=== PATIENT | male | born 1980 | race African-American/Black ===

== ENCOUNTER 2017-06-08 16:25 | Emergency (ER) | payer OTHER ==
[2017-06-08 16:53] VITALS: BMI 33.5
--- NOTE | 2017-06-08 17:17 | PDOC ---
History of Present Illness - General History Source: Patient Exam Limitations: No Limitations - History of Present Illness Initial Comments: 06/08/17 18:24 The patient is a 36 year old male, with a significant past medical history of IDDM who presents to the emergency department with elevated blood glucose levels. Patient states he went to his Urgent care due to cold-like symptoms. BG at the showed 319. EMS was called and patient presents to the ED for further evaluation of DKA. Patient reports he has not been compliant with his insulin due to prescription issues. He denies chest pain, headache or dizziness. He denies fever, chills, abdominal pain, nausea, vomit, diarrhea or constipation. He denies dysuria, frequency, urgency or hematuria. Patient denies sick contacts or recent travel. <Yanni Jerry - Last Filed: 06/08/17 18:24> <Bryce Joseph - Last Filed: 06/08/17 19:37> - General Chief Complaint: Blood Sugar Problem Stated Complaint: HYPERGLYCEMIA Time Seen by Provider: 06/08/17 17:16 Past History <Yanni Jerry - Last Filed: 06/08/17 18:24> - Past Medical History Anemia: No Asthma: No Cancer: No Cardiac Disorders: No CVA: No COPD: No CHF: No Dementia: No Diabetes: Yes (Non compliant) GI Disorders: No Disorders: No HTN: No Hypercholesterolemia: No Liver Disease: No Seizures: No Thyroid Disease: No - Surgical History Abdominal Surgery: No Appendectomy: No Cardiac Surgery: No Cholecystectomy: No Lung Surgery: No Neurologic Surgery: No Orthopedic Surgery: No - Suicide/Smoking/Psychosocial Hx Smoking History: Never smoked Have you smoked in the past 12 months: No Information on smoking cessation initiated: No Hx Alcohol Use: No Drug/Substance Use Hx: No Substance Use Type: None <Bryce Joseph - Last Filed: 06/08/17 19:37> - Past Medical History Allergies/Adverse Reactions: Allergies Allergy/AdvReac Type Severity Reaction Status Date / Time No Known Allergies Allergy Verified 01/07/16 09:45 Home Medications: Ambulatory Orders Insulin Aspart [Novolog] 100 unit SQ ACHS #1 ml 01/10/16 Insulin Detemir [Levemir Flextouch] 28 unit SQ BID #1 ml 01/10/16 Insulin Sliding Scale [Novolog Vial Sliding Scale -] 0 units SQ ACHS #1 pen Isopropyl Alcohol [Alcoh-Wipe] 1 each DAILY #120 towelette 01/10/16 Lancing Device [Lancet Device] 1 each ACHS #90 each 01/10/16 Levofloxacin [Levaquin] 750 mg PO DAILY #7 tablet 01/10/16 Miscellaneous Medical Supply [Glucometer Device] 1 each .ROUTE ASDIR #1 kit Miscellaneous Medical Supply [Glucometer Test Strips #100] 1 each .ROUTE ASDIR # 1 box 01/10/16 Wadding [Cotton Balls] 1 each DAILY #120 each 01/10/16 Review of Systems - Review of Systems Able to Perform ROS?: Yes Comments:: 06/08/17 18:24 A complete review of 10 out of 10 review of systems is taken and is negative apart from what is previously mentioned below and in the HPI. <Yanni Jerry - Last Filed: 06/08/17 18:24> *Physical Exam - Vital Signs Last Vital Signs Temp Pulse Resp BP Pulse Ox 99.1 F 111 H 24 125/85 99 06/08/17 16:49 06/08/17 16:49 06/08/17 16:49 06/08/17 16:49 06/08/17 16:49 - Physical Exam Comments: 06/08/17 18:24 Vitals: Triage Vital signs reviewed General Appearance: no acute distress, well nourished well developed, Head: Atraumatic, normocephalic Neck: Supple;No Nuchal rigidity Chest Wall: Nontender Cardiac: Regular rate and rhythm, no murmurs, no rubs, no gallops, Lungs: Clear to auscultation bilateral, good air movement bilaterally, Abdomen: Soft, nondistended, normal bowel sounds, nontender to palpation Extremities: Full range of motion to all extremities, no cyanosis, clubbing, or edema Skin: Warm and dry, no rashes or lesions, no petechiae <Yanni Jerry - Last Filed: 06/08/17 18:24> - Vital Signs Last Vital Signs Temp Pulse Resp BP Pulse Ox 99.1 F 111 H 24 125/85 99 06/08/17 16:49 06/08/17 16:49 06/08/17 16:49 06/08/17 16:49 06/08/17 16:49 <Bryce Joseph - Last Filed: 06/08/17 19:37> ED Treatment Course - LABORATORY CBC & Chemistry Diagram: 06/08/17 18:15 06/08/17 18:15 - ADDITIONAL ORDERS Additional order review: 06/08/17 18:15 RBC 5.60 MCV 80.5 MCHC 34.1 RDW 13.8 MPV 9.0 Neutrophils % 82.8 Lymphocytes % 10.8 Monocytes % 5.4 Eosinophils % 0.3 Basophils % 0.7 <Yanni Jerry - Last Filed: 06/08/17 18:24> - LABORATORY CBC & Chemistry Diagram: 06/08/17 18:15 06/08/17 18:15 <Bryce Joseph - Last Filed: 06/08/17 19:37> Medical Decision Making - Medical Decision Making 06/08/17 19:09 Noncompliant insulin-dependent diabetic presents with upper respiratory type symptoms as well as increased thirst fingerstick noted to be in the 300s. We'll check labs ABG to rule out DKA hydrate reassess. Patient can follow-up in [facility]. Dr. Yap to follow up patient <Bryce Joseph - Last Filed: 06/08/17 19:37> *DC/Admit/Observation/Transfer - Attestations Scribe Attestion: 06/08/17 18:24 Documentation prepared by Yanni Jerry, acting as medical imaging technician for Bryce Joseph MD <Yanni Jerry - Last Filed: 06/08/17 18:24> <Bryce Joseph - Last Filed: 06/08/17 19:37> Diagnosis at time of Disposition: Uncontrolled diabetes mellitus Qualifiers: Diabetes mellitus type: other specified (including PARISH) Diabetes mellitus complication status: with unspecified complications
[2017-06-08] MEDS ORDERED: SODIUM CHLORIDE 1,000 ML IV STA (17:38)
[2017-06-08] MEDS ORDERED: SODIUM CHLORIDE 0.9% 1000 ML INFUS.BAG IV ONE (17:41)
[2017-06-08 18:20] LABS: BASOPHIL 0.7 % (0-2.0); EOSINOPHIL 0.3 % (0-4.5); MCH 27.5 pg (25.7-33.7); MCHC 34.1 g/dl (32.0-35.9); MEAN CELL VOLUME 80.5 fl (80-96); NEUTROPHILS 82.8 % (42.8-82.8); PLATELET COUNT 190 K/MM3 (134-434); RDW 13.8 % (11.9-15.9); WHITE BLOOD COUNT 12.8 K/mm3 (4.0-10.0)
[2017-06-08 18:52] LABS: ALBUMIN 3.6 g/dl (3.4-5.0); ALK PHOS 128 U/L (45-117); ANION GAP 10 (8-16); BILIRUBIN,TOTAL 1.4 mg/dL (0.2-1.0); CALCIUM 8.7 mg/dL (8.5-10.1); CO2 23 mmol/L (21-32); CREATININE 1.1 mg/dL (0.7-1.3); GLUCOSE,RANDOM 279 mg/dL (74-106); TOT PROT 7.3 g/dl (6.4-8.2)
[2017-06-08 19:31] LABS: SGOT/AST 26 U/L (15-37); SGPT/ALT 41 U/L (12-78)
[2017-06-08] MEDS ORDERED: INSULIN REGULAR HUMAN 100 UNITS/ML *VIAL IVPUSH ONE (19:43)
[2017-06-08 20:03] LABS: ARTERIAL BLD GAS O2 SATURATION 95.9 % (90-98.9); ARTERIAL BLOOD GAS BASE EXCESS 0.6 meq/l (-2-2); ARTERIAL BLOOD GAS HCO3 23.8 meq/L (22-26); ARTERIAL BLOOD GAS PO2 72.3 mmHg (80-100); ARTERIAL BLOOD GAS pH 7.44 (7.35-7.45)
[2017-06-08 20:07] LABS: METHEMOGLOBIN 0.7 % (0.4-1.5)
[2017-06-08 20:08] LABS: ALLENS TEST POSITIVE; ART PUNCT SITE LEFT RADIAL; PT. ON O2? ROOM AIR
[2017-06-08] MEDS ORDERED: INSULIN REGULAR HUMAN 100 UNITS/ML *VIAL ONE (21:24)
--- NOTE | 2017-06-08 23:02 | PDOC ---
*Physical Exam - Vital Signs Last Vital Signs Temp Pulse Resp BP Pulse Ox 98.1 F 108 H 20 111/65 100 06/08/17 19:26 06/08/17 19:26 06/08/17 19:26 06/08/17 19:26 06/08/17 19:26 ED Treatment Course - LABORATORY CBC & Chemistry Diagram: 06/08/17 18:15 06/08/17 18:15 - ADDITIONAL ORDERS Additional order review: Laboratory Results 06/08/17 06/08/17 06/08/17 19:36 18:15 17:39 Anticoagulation Therapy Y Puncture Site Left radial ABG pH 7.44 ABG pCO2 at Pt Temp 35.3 ABG pO2 at Pt Temp 72.3 L ABG HCO3 23.8 ABG O2 Sat (Measured) 95.9 ABG O2 Content 19.6 ABG Base Excess 0.6 Bobby Test Positive Carboxyhemoglobin 1.5 Methemoglobin 0.7 O2 Delivery Device Y Oxygen Flow Rate Room air Vent Mode Y Vent Rate Y Mechanical Rate Y Pressure Support Vent Y Sodium 137 Potassium 3.8 Chloride 104 Carbon Dioxide 23 Anion Gap 10 BUN 12 Creatinine 1.1 Creat Clearance w eGFR > 60 Random Glucose 279 H Calcium 8.7 Total Bilirubin 1.4 H AST 26 ALT 41 Alkaline Phosphatase 128 H Total Protein 7.3 Albumin 3.6 06/08/17 19:12 Influenza Types A,B Antigen (VICKI) - Final Nasopharyngeal Swab - Final 06/08/17 18:15 RBC 5.60 MCV 80.5 MCHC 34.1 RDW 13.8 MPV 9.0 Neutrophils % 82.8 Lymphocytes % 10.8 Monocytes % 5.4 Eosinophils % 0.3 Basophils % 0.7 - Medications Given in the ED: ED Medications Discontinued Medications Generic Name Dose Route Start Last Admin Trade Name Freq PRN Reason Stop Dose Admin Insulin Human Regular 5 units 06/08/17 19:43 06/08/17 21:25 Novolin R Vial *For Ivpush Or Iv Drip Only* IVPUSH 06/08/17 19:44 5 units ONCE ONE Administration Sodium Chloride 2,000 ml 06/08/17 17:41 06/08/17 18:33 Normal Saline - IV 06/08/17 17:42 2,000 ml ONCE ONE Administration Medical Decision Making - Medical Decision Making 06/08/17 23:01 Sugar down slightly, patient anxious to go home. No complaints at present *DC/Admit/Observation/Transfer Diagnosis at time of Disposition: Uncontrolled diabetes mellitus Qualifiers: Diabetes mellitus type: other specified (including PARISH) Diabetes mellitus complication status: with other specified complication - Discharge Dispostion Disposition: HOME Condition at time of disposition: Improved Admit: No - Prescriptions Prescriptions: Insulin (Levemir) [Levemir Flexpen -] 0 units SQ DAILY #1 pen Insulin Lispro [Humalog] 100 unit SQ ASDIR #1 cartridge - Referrals Referrals: Murali Patrick MD [Staff Physician] - - Patient Instructions Printed Discharge Instructions: DI for Hyperglycemia -- Adult - Post Discharge Activity
[2017-06-08 23:03] VITALS: BP 129/80; PULSE 107; TEMP 98.2
--- NOTE | 2017-06-09 13:17 | EKG ---
Test Reason : Blood Pressure : / mmHG Vent. Rate : 115 BPM Atrial Rate : 115 BPM P-R Int : 154 ms QRS Dur : 086 ms QT Int : 330 ms P-R-T Axes : 061 104 020 degrees QTc Int : 456 ms SINUS TACHYCARDIA POSSIBLE LEFT ATRIAL ENLARGEMENT RIGHTWARD AXIS NONSPECIFIC T WAVE ABNORMALITY ABNORMAL ECG NO PREVIOUS ECGS AVAILABLE Confirmed by STEPHANIE BOSE MD ([id number]) on 06/09/2017 1:16:56 PM Referred By: Confirmed By:STEPHANIE BOSE MD
== END 2017-06-08 23:18 | disposition home or self-care (01) ==
LOC: JER 16:25
PROC: 3E033VG Introduction of Insulin into Peripheral Vein, Percutaneous Approach (ICD-10-PCS; principal; 2017-06-08)
DX: E10.65 Type 1 diabetes mellitus with hyperglycemia (principal); Z91.14 Patient's other noncompliance with medication regimen
CPT/HCPCS: 36415; 36600; 80053; 82375; 82803; 83050; 85025; 87040; 87804; 93005; 93010; 99283-25

== ENCOUNTER 2018-09-15 05:46 | Emergency (ER) | payer OTHER ==
[2018-09-15 05:55] VITALS: BMI 27.1
[2018-09-15] MEDS ORDERED: ACETAMINOPHEN 500 MG TABLET (FP) PO ONE (05:57)
--- NOTE | 2018-09-15 06:01 | PDOC ---
History of Present Illness - General Chief Complaint: Cold Symptoms Stated Complaint: FEVER/COUGH Time Seen by Provider: 09/15/18 05:57 History Source: Patient Exam Limitations: No Limitations - History of Present Illness Initial Comments: 09/15/18 06:06 This is a 37-year-old male who has history of type 2 diabetes who comes in complaining of cough, fever, dehydration. Patient said that he has not been compliant with his insulin that he takes for his diabetes and has been bleeding a lot. In addition to that he has had a fever 2 days. Patient has not taken any medication for that either. Patient denies any other medical problems including hypertension, high cholesterol, nausea, vomiting or diarrhea. Allergies: None Past Medical History: none Social history: Lives with family. No smoking. No alcohol. No illicit drugs. Surgical history: None General: + fevers or chills, no weakness, no weight loss HEENT: No change in vision. No sore throat,. No ear pain CardioVascular: no chest discomfort. No shortness of breath Respiratory:+ cough, or wheezing. 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 Allergic: no skin or latex allergy All other systems reviewed and normal Exam: General: Well-nourished well-developed individual, no acute distress HEENT: Throat: Normal, tonsils normal, no erythema or exudate, mucus membranes are dry Neck: Supple, no meningeal signs, no lymphadenopathy Eyes::Pupils equal reactive and round, extraocular motion intact Chest: Nontender to palpation Cardiac: S1-S2 normal, regular rate and rhythm, no murmurs rubs or gallops Respiratory: Lungs clear to auscultation bilateral Abdomen: Soft, nondistended, normal bowel sounds, there is no tenderness on palpation diffusely Extremities: Warm, dry, no cyanosis, clubbing, or edema Skin: No rashes Neuro: Alert and oriented x3, CN II - XII intact, nonfocal exam with normal strength, normal sensation, normal reflexes, normal gait, Psych: Normal mood and affect 09/15/18 06:52 Care of patient transferred to Dr. Watkins at 7am. Case discussed in detail with oncoming Emergency Physician including history, physical exam and ancillary studies. Oncoming Emergency Physician has assumed care for the patient and will complete the evaluation and treatment. Patient is aware of the plan. Pt is clinically unchanged and stable. Past History - Past Medical History Allergies/Adverse Reactions: Allergies Allergy/AdvReac Type Severity Reaction Status Date / Time No Known Allergies Allergy Verified 01/07/16 09:45 Home Medications: Ambulatory Orders Insulin (Levemir) [Levemir Flexpen -] 28 units SQ DAILY 09/15/18 Oseltamivir Phosphate [Tamiflu -] 75 mg PO BID #9 capsule 09/15/18 Anemia: No Asthma: No Cancer: No Cardiac Disorders: No CVA: No COPD: No CHF: No Dementia: No Diabetes: Yes (Non compliant) GI Disorders: No Disorders: No HTN: No Hypercholesterolemia: No Liver Disease: No Seizures: No Thyroid Disease: No - Surgical History Abdominal Surgery: No Appendectomy: No Cardiac Surgery: No Cholecystectomy: No Lung Surgery: No Neurologic Surgery: No Orthopedic Surgery: No - Suicide/Smoking/Psychosocial Hx Smoking History: Unknown if ever smoked Have you smoked in the past 12 months: No Number of Cigarettes Smoked Daily: 0 Information on smoking cessation initiated: No Hx Alcohol Use: No Drug/Substance Use Hx: No Substance Use Type: None *Physical Exam - Vital Signs Last Vital Signs Temp Pulse Resp BP Pulse Ox 100.4 F H 125 H 15 143/82 100 09/15/18 05:52 09/15/18 05:52 09/15/18 05:52 09/15/18 05:52 09/15/18 05:52 Moderate Sedation - Procedure Monitoring Vital Signs: Procedure Monitoring Vital Signs Temperature 100.4 F H 09/15/18 05:52 Pulse Rate 125 H 09/15/18 05:52 Respiratory Rate 15 09/15/18 05:52 Blood Pressure 143/82 09/15/18 05:52 O2 Sat by Pulse Oximetry (%) 100 09/15/18 05:52 ED Treatment Course - LABORATORY CBC & Chemistry Diagram: 09/15/18 06:50 09/15/18 06:50 *DC/Admit/Observation/Transfer Diagnosis at time of Disposition: Influenza A, Uncontrolled diabetes mellitus - Discharge Dispostion Disposition: HOME Condition at time of disposition: Improved - Prescriptions Prescriptions: Oseltamivir Phosphate [Tamiflu -] 75 mg PO BID #9 capsule - Referrals Referrals: [facility] [place] [facility] [place] [Provider Group] - Patient Instructions Printed Discharge Instructions: DI for Influenza -- Adult Additional Instructions: Return to the emergency department immediately with ANY new, persistent or worsening symptoms. Take tylenol/motrin as needed for body aches/fever. Make sure you are staying well hydrated. Make sure you are consistently taking your insulin and eating as necessary. You MUST call and follow up with your doctor in 4-5 days for further evaluation of your symptoms. Results were discussed with you. Please make sure your doctor reviews the results of your emergency evaluation. Print Language: BELGIAN - Post Discharge Activity Forms/Work/School Notes: Back to Work
[2018-09-15] MEDS ORDERED: ACETAMINOPHEN INJECTION 100 ML IVPB ONE (06:04)
[2018-09-15] MEDS ORDERED: SODIUM CHLORIDE 1,000 ML IV ONE ×3 (06:05→10:53)
--- NOTE | 2018-09-15 07:10 | PDOC ---
*Physical Exam - Vital Signs Last Vital Signs Temp Pulse Resp BP Pulse Ox 100.4 F H 125 H 15 143/82 100 09/15/18 05:52 09/15/18 05:52 09/15/18 05:52 09/15/18 05:52 09/15/18 05:52 ED Treatment Course - LABORATORY CBC & Chemistry Diagram: 09/15/18 06:50 09/15/18 06:50 - Medications Given in the ED: ED Medications Discontinued Medications Generic Name Dose Route Start Last Admin Trade Name Regine PRN Reason Stop Dose Admin Acetaminophen 1,000 mg 09/15/18 05:57 09/15/18 06:10 Tylenol - PO 09/15/18 05:58 1,000 mg ONCE ONE Administration Sodium Chloride 1,000 mls @ 1,000 mls/hr 09/15/18 06:05 09/15/18 06:10 Normal Saline - IV 09/15/18 07:04 1,000 mls/hr .Q1H ONE Administration Medical Decision Making - Medical Decision Making 09/15/18 07:09 Pt signed out to me from Dr. Whatley. 37y M hx of IDDM presents with cough, fever, dehydration. States he has not been entirely compliant with his insulin recently, endorses body aches, mild nonproductive cough, fever for 2 days. denies associated cp, n/v, diarrhea, abd pain, mascorro. no sick contacts. notes that he has insulin, but due to business at work hasnt been able to take his meds. 09/15/18 09:22 pts labs reviewed noted for hyperglycemia initial LA elevated to 2.7 t bili elevated, no signs of jaundice or abd pain awaiting influenza cxr neg for pna pt still tachy and febrile, wll give motrin 09/15/18 11:56 pts HR improved, temp improved repeat LA wnl influenza positive will treat with tamiflu pt has refills of his insulin at [facility] will have him fu wth pmd I discussed the physical exam findings, ancillary test results and final diagnoses with the patient. I answered all of the patient's questions. The patient was satisfied with the care received and felt comfortable with the discharge plan and treatment plan. The patient will call their primary care physician within 24 hours to arrange follow-up and will return to the Emergency Department with any new, persistent or worsening symptoms. *DC/Admit/Observation/Transfer Diagnosis at time of Disposition: Influenza A Uncontrolled diabetes mellitus Qualifiers: Diabetes mellitus type: type 1 Glycemic state: with hyperglycemia Qualified Code(s): E10.65 - Type 1 diabetes mellitus with hyperglycemia - Discharge Dispostion Disposition: HOME Condition at time of disposition: Improved Decision to Admit order: No - Prescriptions Prescriptions: Oseltamivir Phosphate [Tamiflu -] 75 mg PO BID #9 capsule - Referrals Referrals: [facility] [place] [facility] [place] [Provider Group] - Patient Instructions Printed Discharge Instructions: DI for Influenza -- Adult Additional Instructions: Return to the emergency department immediately with ANY new, persistent or worsening symptoms. Take tylenol/motrin as needed for body aches/fever. Make sure you are staying well hydrated. Make sure you are consistently taking your insulin and eating as necessary. You MUST call and follow up with your doctor in 4-5 days for further evaluation of your symptoms. Results were discussed with you. Please make sure your doctor reviews the results of your emergency evaluation. Print Language: LATVIAN - Post Discharge Activity Forms/Work/School Notes: Back to Work
[2018-09-15] MEDS ORDERED: IBUPROFEN 600 MG TABLET (FP) PO ONE ×2 (08:48→08:49)
[2018-09-15 08:57] LABS: HEMATOCRIT 49.4 % (35.4-49); HEMOGLOBIN 16.3 GM/dl (11.7-16.9); MCH 27.8 pg (25.7-33.7); MCHC 32.9 g/dl (32.0-35.9); MEAN CELL VOLUME 84.5 fl (80-96); MEAN PLT VOLUME 10.3 fl (7.5-11.1); PLATELET COUNT 182 K/MM3 (134-434); RBC 5.85 M/mm3 (4.00-5.60); RDW 12.8 % (11.9-15.9); WHITE BLOOD COUNT 5.6 K/mm3 (4.0-10.8)
[2018-09-15 09:00] LABS: ALBUMIN 3.9 g/dl (3.4-5.0); ALK PHOS 129 U/L (45-117); ANION GAP 16 MMOL/L (8-16); BILIRUBIN,TOTAL 1.8 mg/dl (0.2-1); BLOOD UREA NITROGEN 13 mg/dl (7-18); CALCIUM 9.1 mg/dl (8.5-10); CHLORIDE 97 mmol/L (98-107); CO2 21 mmol/L (21-32); CREATININE 1.2 mg/dl (0.55-1.3); POTASSIUM 3.7 mmol/L (3.5-5.1); SGOT/AST 57 U/L (15-37); SGPT/ALT 54 U/L (13-61); SODIUM 134 mmol/L (136-145); TOT PROT 7.5 g/dl (6.4-8.2)
[2018-09-15 09:04] LABS: PH,URINE 5.5 (4.5-8); URINE APPEARANCE Clear; URINE BILIRUBIN Negative (NEGATIVE); URINE COLOR Amber; URINE GLUCOSE (UA) 2+ (NEGATIVE); URINE KETONE 2+ (NEGATIVE); URINE LEUK ESTERASE Negative (NEGATIVE); URINE NITRITE Negative (NEGATIVE); URINE PROTEIN Trace (NEGATIVE); URINE UROBILINOGEN 0.2 (0.2-1.0)
[2018-09-15 09:09] LABS: GLUCOSE,RANDOM 330 mg/dl (74-106)
[2018-09-15] MEDS ORDERED: INSULIN REGULAR HUMAN 100 UNITS/ML *VIAL SQ ONE (09:20)
[2018-09-15] MEDS ORDERED: INSULIN REGULAR HUMAN 100 UNITS/ML *VIAL ONE (09:22)
[2018-09-15] MEDS ORDERED: OSELTAMIVIR PHOSPHATE 75 MG CAPSULE PO ONE (10:05)
[2018-09-15] MEDS ORDERED: OSELTAMIVIR PHOSPHATE 75 MG CAPSULE ONE (10:05)
[2018-09-15 10:30] VITALS: BP 132/86
[2018-09-15 10:43] LABS: URINE RBC 0-2 /hpf (0-3)
[2018-09-15 10:51] LABS: PLATELET ESTIMATE ADEQUATE
[2018-09-15 11:35] VITALS: PULSE 104; TEMP 100
--- NOTE | 2018-09-15 11:59 | EKG ---
Test Reason : Blood Pressure : / mmHG Vent. Rate : 121 BPM Atrial Rate : 121 BPM P-R Int : 152 ms QRS Dur : 092 ms QT Int : 306 ms P-R-T Axes : 067 075 017 degrees QTc Int : 434 ms SINUS TACHYCARDIA OTHERWISE NORMAL ECG WHEN COMPARED WITH ECG OF 08-JUN-2017 16:40, NO SIGNIFICANT CHANGE WAS FOUND Confirmed by KASSIE AMEZCUA MD ([id number]) on 09/15/2018 11:59:29 AM Referred By: MD ESTRADA Confirmed By:KASSIE AMEZCUA MD
== END 2018-09-15 12:07 | disposition home or self-care (01) ==
LOC: FER 05:46
PROC: 3E0337Z Introduction of Electrolytic and Water Balance Substance into Peripheral Vein, Percutaneous Approach (ICD-10-PCS; principal; 2018-09-15)
PROC: 3E013VG Introduction of Insulin into Subcutaneous Tissue, Percutaneous Approach (ICD-10-PCS; 2018-09-15)
DX: J10.1 Influenza due to other identified influenza virus with other respiratory manifestations (principal); E11.65 Type 2 diabetes mellitus with hyperglycemia; Z91.14 Patient's other noncompliance with medication regimen; Z79.4 Long term (current) use of insulin
CPT/HCPCS: 36415; 71045-TC-FY; 80053; 81003; 81015; 82550; 82553; 82962; 83605; 84484; 85025; 87040; 87086; 87804; 93005; 99285-25; J7030